=== PATIENT | female | born 1965 | race Caucasian/White ===

== ENCOUNTER 2018-06-25 20:44 | Emergency (ER) | payer MEDICAID ==
[~2018-06-25] VITALS: Ht 165.1 cm; Wt 65.8 kg
--- NOTE | 2018-06-25 20:55 | NUR ---
BIB SELF TO ER BED 5 COMPLAINING OF SWOLLEN TONGUE. C/C ALLERGIC RXN SINCE "4:30PM". AA/OX4 SPEAKING COMPLETE SENTENCES. NO S/S SOB. NO VISIBLE HIVES THROUGHOUT BODY. SKIN PINK, WARM, DRY. NO N/V. AMBULATED TO BED WITH STABLE CONDITION. VSS. NAD. STABLE CONDITION. WILL CONTINUE TO MONITOR.
[2018-06-25] MEDS ORDERED: FAMOTIDINE/PF INJ 20 MG/2 ML VIAL IV ONE ×2 (21:00→21:06)
[2018-06-25] MEDS ORDERED: methylPREDNISolone SOD SUCC 125 MG/2ML VIAL IV ONE (21:00)
[2018-06-25] MEDS ORDERED: methylPREDNISolone SOD SUCC 125 MG/2ML VIAL ONE (21:07)
--- NOTE | 2018-06-25 21:33 | NUR ---
Patient discharged to home in stable condition. Written and verbal after care instructions given. Patient verbalizes understanding of instruction. IV removed. Catheter intact and site benign. Pressure and 4x4 applied to site. No bleeding noted. AMBULATED WITH STEADY GAIT. VSS. NAD.
[2018-06-25 21:34] VITALS: BP 146/82
== END 2018-06-25 21:34 | disposition home or self-care (01) ==
LOC: ER 20:48
DX: T78.3XXA Angioneurotic edema, initial encounter (principal)
CPT/HCPCS: 96374 ×2; 99284; A4606; J2930; J3490; Z7610

== ENCOUNTER 2022-03-01 17:41 | Emergency (ER) | payer MEDICAID ==
[~2022-03-01] VITALS: Ht 165.1 cm; Wt 79.4 kg
--- NOTE | 2022-03-01 17:43 | NUR ---
BIBS c/o left eye redness x 17 days 7/10 pain scale. ANBULATORY, PLACED ON BED, AAOX4
[2022-03-01 17:50] VITALS: BP 134/84
--- NOTE | 2022-03-01 17:55 | NUR ---
AT BED SIDE
[2022-03-01] MEDS ORDERED: PILO15DR6 OP ×2 (18:18→18:21)
--- NOTE | 2022-03-01 18:28 | NUR ---
Patient discharged to home in stable condition. Written and verbal after care instructions given. Patient verbalizes understanding of instruction.
== END 2022-03-01 18:27 | disposition home or self-care (01) ==
LOC: ER 17:44
DX: H20.9 Unspecified iridocyclitis (principal); J45.909 Unspecified asthma, uncomplicated; Z91.018 Allergy to other foods; Z79.899 Other long term (current) drug therapy